=== PATIENT | female | born 1960 | race Caucasian/White ===

== ENCOUNTER 2024-03-31 08:47 | Day surgery (SDC) | payer MEDICARE, SELFPAY ==
[2024-03-31] MEDS: Tetracaine HCl/PF 0.5% Oph Sol 4 ML DROPS 1 DROP EYE-RIGHT (09:23)
[2024-03-31] MEDS: Cyclopentolate 1 % Ophth Sol 2 ML DRPBTL 1 DROP EYE-RIGHT ×3 (09:24→09:40)
[2024-03-31] MEDS: Tropicamide 1 % Ophth Sol 3 ML BTL 1 DROP EYE-RIGHT ×3 (09:26→09:42)
[2024-03-31] MEDS: Ketorolac Tromethamine 0.5% Op 10 ML DROPS 1 DROP EYE-RIGHT ×3 (09:28→09:44)
[2024-03-31] MEDS: Phenylephrine HCL 2.5% Oph SoL 2 ML BOTTLE 1 DROP EYE-RIGHT ×3 (09:30→09:46)
--- NOTE | 2024-03-31 09:48 | HO.ANESPROP2 ---
HPI - Anesthesia Eval Consult details Narrative: 63 yo female patient for Right cataract extraction, IOL insertion Anesthesia Pre-Procedure Meds Is the patient on any of the following meds?: SGLT2 Inhib (Last dose of farxiga 03/27/24) If yes to any meds - educate patient: Pt education - increased risk of aspiration and/or euvolemic DKA [facility] Active Problems Active Problems: CAD. [place] 2006. Denies recent chest pain Atrial fibrillatio. Cardioverted. Now Sinus rhythm MART. Does not use CPAP machine Ischemic cardiomyopathy. EF 30-35%. No recent worsening of or change in symptoms Smoker DM Morbid Obesity BMI 45.3 Past Medical History Medical History (Updated 03/31/24 @ 09:59 by Karen Rodriguez MD) Diabetes Coronary arteriosclerosis Ischemic congestive cardiomyopathy Atrial fibrillation Chronic systolic heart failure Benign colon polyp GERD (gastroesophageal reflux disease) HTN (hypertension) Osteopenia Leukocytosis Polycythemia vera Polyp of vocal cord Nicotine dependence Morbid obesity Thyroid disease Family History Family history of problems with anesthesia: No Surgical History Surgical History (Updated 03/31/24 @ 10:08 by Karen Rodriguez MD) History of cardioversion No pertinent past surgical history History of Problems with Anesthesia: No Social History Social History Are you a primary progressive care unit registered nurse to a significant other at home: No Patient Tobacco Use Status: Current everyday Tobacco user Tobacco use type: Cigarette Cigarette Packs Per Day: 0.5 Cigarettes Per Day: 10.0 Use of substances other than those prescribed or required for medical reasons: No Are you DNR?: No Advance Directives: No Advance Directives Information Provided: Yes Advance Directives on File: No Recently lost weight without trying: No Nutrition Risks: No Nutritional Risk Patient : No : No Meds Allergies Allergy/AdvReac Type Severity Reaction Status Date / Time No Known Allergies Allergy Verified 03/25/24 07:08 Active Medications: Current Medications Povidone Iodine (Povidone Iodine 5 % Ophth Soln 30 Ml Bottle) 1 appl EYE-RIGHT PREOP PRN PRN Reason: Pre-Op Surgical Implant Prophy Home Medications ?Medication ?Instructions ?Recorded ?Confirmed ?Last Taken ?Type amiodarone 200 mg tablet 200 mg PO DAILY 03/25/24 03/25/24 Unknown History apixaban 5 mg tablet (Eliquis) 5 mg PO BID 03/25/24 03/25/24 Unknown History aspirin 81 mg tablet,delayed 81 mg PO DAILY 03/25/24 03/25/24 Unknown History release atorvastatin 40 mg tablet 40 mg PO DAILY 03/25/24 03/25/24 Unknown History dapagliflozin propanediol 10 mg 10 mg PO DAILY 03/25/24 03/25/24 Unknown History tablet (Farxiga) furosemide 80 mg tablet 80 mg PO DAILY 03/25/24 03/25/24 Unknown History insulin glargine U-300 conc 300 44 unit subcut QAM 03/25/24 03/25/24 Unknown History unit/mL (3 mL) subcutaneous pen (TouCoreXchangeo Max U-300 SoloStar) metformin 500 mg tablet,extended 1,000 mg PO QAM 03/25/24 03/25/24 Unknown History release 24 hr metformin 500 mg tablet,extended 500 mg PO QPM 03/25/24 03/25/24 Unknown History release 24 hr metoprolol succinate 100 mg 100 mg PO BID 03/25/24 03/25/24 Unknown History tablet,extended release 24 hr nystatin 100,000 unit/gram topical 1 appl topical BID 03/25/24 03/25/24 Unknown History cream omeprazole 40 mg capsule,delayed 40 mg PO DAILY 03/25/24 03/25/24 Unknown History release sacubitril 97 mg-valsartan 103 mg 1 tab PO BID 03/25/24 03/25/24 Unknown History tablet (Entresto) spironolactone 50 mg tablet 50 mg PO DAILY 03/25/24 03/25/24 Unknown History vitamin E 268 mg (400 unit) capsule 268 mg PO DAILY 03/25/24 03/25/24 Unknown History Exam Height,Weight and Vital Signs: Height 5ft 3in Weight 115.938 kg Airway Mallampati Class: IV TM Dist: >3cm Neck ROM: Full Loose/Missing/Broken Teeth: Yes (Some teeth missing back. Denies broken or loose teeth) Heart: RRR. Distant Lungs: CTAB Assessment and Plan Assessment Anesthesia Assessment: Anesthesia Plan Discussed and Chart Reviewed Final Anesthetic Review Family History of Problems with Anesthesia: No History of Problems with Anesthesia: No NPO: Yes ASA Class: III Final Preanesthetic Review: No Changes in Pt Med Stat, Meds/Allgs Chart Reviewed, Consent Obtained/Reviewed and Anes Risks/Benef Reviewed Patient Risk: Intermediate Procedure Risk: Low Assessment/Block/Sedation in SS: Assess/Block/Sedation-SS Anesthetic Plan Anesthetic Plan: MAC: Disposition: Standard PACU
[2024-03-31 09:52] LABS: Glucose, Whole Blood 182 mg/dL (60-115)
[2024-03-31 10:05] VITALS: BMI 45.3
[2024-03-31 10:06] VITALS: BP 131/69; PULSE 82; RESP 16; TEMP 36.1; O2SAT 96
--- NOTE | 2024-03-31 10:37 | MHC.SHP ---
Pre-Procedural Eval Section A - 24 Hr Update-Section A only Date of Service: 03/31/24 The patient is an INPATIENT: No Changes since office visit: No Cold of Flu in the past 2 weeks, No New Medical Problems, No Changes in Medication and No Patient answered all questions The patient has been examined within 24 hours of the surgical procedure. The History & Physical has been completed within 30 days and I have reviewed it.: Yes Section B - Complete if H&P > 30 days Chief Complaint: Age-related nuclear cataract, right eye Allergies: Allergies Allergy/AdvReac Type Severity Reaction Status Date / Time No Known Allergies Allergy Verified 03/25/24 07:08 Plan Diagnosis/Plan: Unchanged I have reviewed the history and physical and performed a pertinent physical examination on my patient. No changes have occurred unless specified. Time Spent With Patient Time: Total time managing care of this patient today ____ minutes.
--- NOTE | 2024-03-31 10:37 | HO.PNOPHT ---
Ophthalmology Procedure Procedure Date of Service: 03/31/24 Ophthalmology Viscoelastic: Healon Duet Dual Pack Pro Ophthalmology Lenses: IOL Acrysof MP - MA60AC (7) Procedure Notes: PREOPERATIVE DIAGNOSIS: Decreased visual acuity right eye secondary to cataract POSTOPERATIVE DIAGNOSIS: Same PROCEDURE: Right cataract extraction with intraocular lens insertion SURGEON: Zhang Lee M.D. ANESTHESIA: Topical/MAC ESTIMATED BLOOD LOSS: None COMPLICATIONS: None After obtaining informed consent, the patient was brought to the operating room suite and placed in the supine position. After adequate sedation per anesthesia, topical drops of Tetracaine were given to the right eye. The eye was then prepped and draped in the usual sterile fashion. The operating room microscope was then positioned over the operative eye and a lid speculum placed. A paracentesis was created. Viscoelastic was then instilled into the anterior chamber. A three plane incision was then created temporally, utilizing a 2.85 mm keratome. Capsulotomy forceps were then utilized to create a circular tear capsulotomy. Hydrodissection and hydrodelineation were carried out until adequate mobilization of the nucleus occurred. Phacoemulsification was then utilized to remove the dense central nucleus followed by removal of the cortical material utilizing the automated aspiration irrigation unit. Viscoelastic was instilled into the posterior capsular bag followed by placement of a posterior chamber intraocular lens without difficulty. The residual Viscoelastic was then removed utilizing the automated IA machine. The wound was checked and found to be watertight. The patient tolerated the procedure well and the lid speculum was removed. Intracameral injection of Vigamox 0.1 mL followed by a subtenon injection of Kenalog-40 0.2 mL were administered. The patient will be seen in the a.m.
[2024-03-31 10:59] VITALS: BP 132/78; PULSE 62; RESP 15; TEMP 36.2; O2SAT 94
== END 2024-03-31 11:17 | disposition home or self-care (01) ==
PROVIDERS: PCP Family Medicine; Visit Provider Ophthalmology
PROC: (CPT 66985; principal; 2024-03-31 10:30)
DX: H25.11 Age-related nuclear cataract, right eye (principal); H52.4 Presbyopia; Z97.3 Presence of spectacles and contact lenses; H18.413 Arcus senilis, bilateral; E11.9 Type 2 diabetes mellitus without complications; I48.91 Unspecified atrial fibrillation; Z79.01 Long term (current) use of anticoagulants; Z79.4 Long term (current) use of insulin; Z79.82 Long term (current) use of aspirin; Z79.899 Other long term (current) drug therapy; F17.210 Nicotine dependence, cigarettes, uncomplicated
CPT/HCPCS: 66984; 82947; J2250; J3301; V2630

== ENCOUNTER 2024-04-14 08:17 | Day surgery (SDC) | payer MEDICARE, SELFPAY ==
[2024-04-11 11:13] VITALS: BMI 45.3
[2024-04-14 09:33] LABS: Glucose, Whole Blood 157 mg/dL (60-115)
[2024-04-14] MEDS: Tropicamide 1 % Ophth Sol 3 ML BTL 1 DROP EYE-LEFT ×3 (09:33→09:35)
[2024-04-14] MEDS: Ketorolac Tromethamine 0.5% Op 10 ML DROPS 1 DROP EYE-LEFT ×3 (09:33→09:35)
[2024-04-14] MEDS: Phenylephrine HCL 2.5% Oph SoL 2 ML BOTTLE 1 DROP EYE-LEFT ×3 (09:33→09:35)
[2024-04-14] MEDS: Tetracaine HCl/PF 0.5% Oph Sol 4 ML DROPS 1 DROP EYE-LEFT (09:33)
[2024-04-14] MEDS: Lactated Ringers 500 ML 20 ML IVCONT (09:33)
[2024-04-14] MEDS: Cyclopentolate 1 % Ophth Sol 2 ML DRPBTL 1 DROP EYE-LEFT ×3 (09:33→09:34)
[2024-04-14 09:36] VITALS: BP 138/68; PULSE 59; RESP 18; TEMP 36.2; O2SAT 95
--- NOTE | 2024-04-14 09:58 | HO.ANESPROP2 ---
HPI - Anesthesia Eval Consult details Narrative: 63 yo F presenting for left cataract extraction IOL insertion. Had right eye done previously. Hx of ischemic cardiomyopathy with EF 30-35%. Anesthesia Pre-Procedure Meds Is the patient on any of the following meds?: SGLT2 Inhib If yes to any meds - educate patient: Pt education - increased risk of aspiration and/or euvolemic DKA [facility] Past Medical History Medical History (Updated 03/31/24 @ 10:08 by Karen Rodriguez MD) Diabetes Coronary arteriosclerosis Ischemic congestive cardiomyopathy Atrial fibrillation Chronic systolic heart failure Benign colon polyp GERD (gastroesophageal reflux disease) HTN (hypertension) Osteopenia Leukocytosis Polycythemia vera Polyp of vocal cord Nicotine dependence Morbid obesity Thyroid disease Family History Family history of problems with anesthesia: No Surgical History Surgical History (Updated 03/31/24 @ 10:08 by Karen Rodriguez MD) History of cardioversion No pertinent past surgical history History of Problems with Anesthesia: No Social History Social History Are you a primary managed care director to a significant other at home: No Patient Tobacco Use Status: Current everyday Tobacco user Tobacco use type: Cigarette Cigarette Packs Per Day: 0.5 Cigarettes Per Day: 10.0 Use of substances other than those prescribed or required for medical reasons: No Are you DNR?: No Advance Directives: No Advance Directives Information Provided: Yes Advance Directives on File: No Recently lost weight without trying: No Nutrition Risks: No Nutritional Risk Patient : No : No Meds Allergies Allergy/AdvReac Type Severity Reaction Status Date / Time No Known Allergies Allergy Verified 03/25/24 07:08 Active Medications: Current Medications Lactated Ringer's (Lr) 500 mls @ 20 mls/hr IVCONT .Q24H CAROLYNN Last Admin: 04/14/24 09:33 Dose: 20 mls/hr Povidone Iodine (Povidone Iodine 5 % Ophth Soln 30 Ml Bottle) 1 appl EYE-LEFT PREOP PRN PRN Reason: Pre-Op Surgical Implant Prophy Home Medications ?Medication ?Instructions ?Recorded ?Confirmed ?Last Taken ?Type amiodarone 200 mg tablet 200 mg PO DAILY 03/25/24 03/31/24 03/30/24 History apixaban 5 mg tablet (Eliquis) 5 mg PO BID 03/25/24 03/31/24 03/30/24 History aspirin 81 mg tablet,delayed 81 mg PO DAILY 03/25/24 03/31/24 03/30/24 History release atorvastatin 40 mg tablet 40 mg PO DAILY 03/25/24 03/31/24 03/30/24 History dapagliflozin propanediol 10 mg 10 mg PO DAILY 03/25/24 03/31/24 04/10/24 History tablet (Farxiga) furosemide 80 mg tablet 80 mg PO DAILY 03/25/24 03/31/24 03/30/24 History insulin glargine U-300 conc 300 44 unit subcut QAM 03/25/24 03/25/24 Unknown History unit/mL (3 mL) subcutaneous pen (Toujeo Max U-300 SoloStar) metformin 500 mg tablet,extended 1,000 mg PO QAM 03/25/24 03/31/24 03/30/24 History release 24 hr metformin 500 mg tablet,extended 500 mg PO QPM 03/25/24 03/31/24 03/30/24 History release 24 hr metoprolol succinate 100 mg 100 mg PO BID 03/25/24 03/31/24 03/30/24 History tablet,extended release 24 hr nystatin 100,000 unit/gram topical 1 appl topical BID 03/25/24 03/25/24 Unknown History cream omeprazole 40 mg capsule,delayed 40 mg PO DAILY 03/25/24 03/31/24 03/30/24 History release sacubitril 97 mg-valsartan 103 mg 1 tab PO BID 03/25/24 03/31/24 03/30/24 History tablet (Entresto) spironolactone 50 mg tablet 50 mg PO DAILY 03/25/24 03/31/24 03/30/24 History vitamin E 268 mg (400 unit) capsule 268 mg PO DAILY 03/25/24 03/31/24 03/30/24 History Exam Exam Date and Time: April 14, 2024 1000 Height,Weight and Vital Signs: Height 5 ft 3 in Weight 115.938 kg Last Vital Signs Temp 97.1 F 04/14/24 09:36 Pulse 59 04/14/24 09:36 Resp 18 04/14/24 09:36 BP 138/68 04/14/24 09:36 Pulse Ox 95 04/14/24 09:36 O2 Del Method Room Air 04/14/24 09:36 Pertinent Lab Results Pertinent Lab Results: Laboratory Tests 04/14/24 09:27 POC Glucose 157 H Airway Mallampati Class: II TM Dist: >3cm Neck ROM: Full Loose/Missing/Broken Teeth: No (patient denies any loose or broken teeth) Heart: S1S2 Lungs: CTAB Assessment and Plan Assessment Anesthesia Assessment: Anesthesia Plan Discussed and Chart Reviewed Final Anesthetic Review Family History of Problems with Anesthesia: No History of Problems with Anesthesia: No NPO: Yes ASA Class: III Final Preanesthetic Review: No Changes in Pt Med Stat, Meds/Allgs Chart Reviewed, Consent Obtained/Reviewed and Anes Risks/Benef Reviewed Patient Risk: High Procedure Risk: Low Anesthetic Plan Anesthetic Plan: MAC: and Agree w/ Assess. and Plan Disposition: Standard PACU
--- NOTE | 2024-04-14 10:34 | MHC.SHP ---
Pre-Procedural Eval Section A - 24 Hr Update-Section A only Date of Service: 04/14/24 The patient is an INPATIENT: No Changes since office visit: No Cold of Flu in the past 2 weeks, No New Medical Problems, No Changes in Medication and No Patient answered all questions The patient has been examined within 24 hours of the surgical procedure. The History & Physical has been completed within 30 days and I have reviewed it.: Yes Section B - Complete if H&P > 30 days Chief Complaint: Age-related nuclear cataract, left eye Allergies: Allergies Allergy/AdvReac Type Severity Reaction Status Date / Time No Known Allergies Allergy Verified 03/25/24 07:08 Plan Diagnosis/Plan: Unchanged I have reviewed the history and physical and performed a pertinent physical examination on my patient. No changes have occurred unless specified. Time Spent With Patient Time: Total time managing care of this patient today ____ minutes.
--- NOTE | 2024-04-14 10:35 | HO.PNOPHT ---
Ophthalmology Procedure Procedure Date of Service: 04/14/24 Ophthalmology Viscoelastic: Healon Duet Dual Pack Pro Ophthalmology Lenses: IOL Acrysof MP - MA60AC (8.5) Procedure Notes: PREOPERATIVE DIAGNOSIS: Decreased visual acuity left eye secondary to cataract POSTOPERATIVE DIAGNOSIS: Same PROCEDURE: Left cataract extraction with intraocular lens insertion SURGEON: Zhang Lee M.D. ANESTHESIA: Topical/MAC ESTIMATED BLOOD LOSS: None COMPLICATIONS: None After obtaining informed consent, the patient was brought to the operation room suite and placed in the supine position. After adequate sedation per anesthesia, topical drops of Tetracaine were given to the left eye. The eye was then prepped and draped in the usual sterile fashion. The operating room microscope was then positioned over the operative eye and a lid speculum placed. A paracentesis was created. Viscoelastic was then instilled into the anterior chamber. A three plane incision was then created temporally, utilizing a 2.85 mm keratome. Capsulotomy forceps were then utilized to create a circular tear capsulotomy. Hydrodissection and hydrodelineation were carried out until adequate mobilization of the nucleus occurred. Phacoemulsification was then utilized to remove the dense central nucleus followed by removal of the cortical material utilizing the automated aspiration irrigation unit. Viscoat elastic was instilled into the posterior capsular bag followed by placement of a posterior chamber intraocular lens without difficulty. The residual Viscoat elastic was then removed utilizing the automated IA machine. The wound was check and found to be watertight. The patient tolerated the procedure well and the lid speculum was removed. Intracameral injection of Vigamox 0.1 mL followed by a subtenon injection of Kenalog-40 0.2 mL were administered. The patient will be seen in the a.m.
[2024-04-14 11:01] VITALS: BP 132/67; PULSE 60; RESP 16; TEMP 36.2; O2SAT 97
== END 2024-04-14 11:22 | disposition home or self-care (01) ==
PROVIDERS: PCP Family Medicine; Visit Provider Ophthalmology
PROC: (CPT 66985; principal; 2024-04-14 10:20)
DX: H25.12 Age-related nuclear cataract, left eye (principal); H52.4 Presbyopia; H18.413 Arcus senilis, bilateral; E11.9 Type 2 diabetes mellitus without complications; I48.91 Unspecified atrial fibrillation; Z79.01 Long term (current) use of anticoagulants; Z79.82 Long term (current) use of aspirin; Z79.4 Long term (current) use of insulin; Z79.84 Long term (current) use of oral hypoglycemic drugs; Z79.899 Other long term (current) drug therapy; F17.210 Nicotine dependence, cigarettes, uncomplicated
CPT/HCPCS: 66984; 82947; J2250; J3301; V2630